=== PATIENT | male | born 1970 | race Two or more races ===

== ENCOUNTER 2018-09-30 20:07 | Emergency (ER) | payer BC ==
[2018-09-30] MEDS ORDERED: SODIUM CHLORIDE 0.9% 500 ML 500 ML IV STA (20:39)
[2018-09-30 21:04] LABS: Basophils % (A) 1 %; Eosinophils # (A) 0.2 k/uL (0-0.7); Eosinophils % (A) 2 %; HCT 50.4 % (39.0-53.0); HGB 17.3 gm/dL (13.0-17.5); Lymphocytes # (A) 2.1 k/uL (1.0-4.8); Lymphocytes % (A) 26 %; MCH 31.2 pg (25.0-35.0); MCHC 34.4 g/dL (31.0-37.0); MCV 90.7 fL (80.0-100.0); Mean Platelet Volume 6.9; Monocytes # (A) 0.4 k/uL (0-1.0); Monocytes % (A) 5 %; Neutrophils # (A) 5.3 k/uL (1.3-7.7); Neutrophils % (A) 65 %; Platelet Count 245 k/uL (150-450); RBC 5.55 m/uL (4.30-5.90); RDW 13.1 % (11.5-15.5)
--- NOTE | 2018-09-30 21:12 | XR ---
EXAMINATION TYPE: XR chest 2V DATE OF EXAM: 09/30/2018 COMPARISON: Chest radiograph 10/27/2016 HISTORY: Chest pain TECHNIQUE: Frontal and lateral views of the chest are obtained. FINDINGS: There is no focal air space opacity, pleural effusion, or pneumothorax seen. The cardiac silhouette size is within normal limits. The osseous structures are intact. IMPRESSION: No acute cardiopulmonary process. No significant interval change.
[2018-09-30 21:23] LABS: Partial Thromboplastin Time 25.1 sec (22.0-30.0)
[2018-09-30 21:24] LABS: ALT 30 U/L (21-72); AST 27 U/L (17-59); Alkaline Phosphatase 79 U/L (38-126); Anion Gap 8 mmol/L; Blood Urea Nitrogen 10 mg/dL (9-20); Carbon Dioxide 28 mmol/L (22-30); Chloride 106 mmol/L (98-107); Glucose 130 mg/dL (74-99); Magnesium 2.2 mg/dL (1.6-2.3); Potassium 4.4 mmol/L (3.5-5.1); Sodium 142 mmol/L (137-145); Total Bilirubin 0.6 mg/dL (0.2-1.3); Total Protein 7.4 g/dL (6.3-8.2)
--- NOTE | 2018-09-30 21:34 | ED ---
Arrhythmia/Palpitations HPI - General Chief Complaint: Arrhythmia/Palpitations Stated Complaint: A-Fib Symptoms/Hx Time Seen by Provider: 09/30/18 20:18 Source: patient Mode of arrival: ambulatory Limitations: no limitations - History of Present Illness Initial Comments: Patient is a 48-year-old male presenting for palpitations. Patient states that in the past, he was diagnosed with atrial fibrillation about 7 years ago and put on flecainide. He states that he was often on the medication but did not stay on it because he continued to have fatigued from it. Around 7:50 PM tonight, he noted that his heart rate went up to 180 bpm. He currently does not take any medications and denies any chest pain or shortness of breath. He also denies taking any blood thinners as well as nausea/vomiting/diarrhea. - Related Data Home Medications Medication Instructions Recorded Confirmed Aspirin EC [Ecotrin] 325 mg PO DAILY 10/27/16 09/30/18 Previous Rx's Medication Instructions Recorded Flecainide [Tambocor] 50 mg PO Q12HR #60 tab 10/28/16 Metoprolol Tartrate [Lopressor] 25 mg PO BID #60 tab 09/30/18 Allergies Allergy/AdvReac Type Severity Reaction Status Date / Time bee venom protein (honey bee) Allergy Swelling Verified 09/30/18 20:16 Review of Systems ROS Statement: Those systems with pertinent positive or pertinent negative responses have been documented in the HPI. Constitutional: Negative for chills, fatigue and fever. HENT: Negative for congestion. Respiratory: Negative for chest tightness, shortness of breath and wheezing. Negative for cough Cardiovascular: Negative for chest pain and positive for palpitations. Gastrointestinal: Negative for abdominal pain. Negative for abdominal distention , diarrhea, nausea and vomiting. Genitourinary: Negative for dysuria. Musculoskeletal: Negative for back pain, neck pain and neck stiffness. Skin: Negative for color change. Neurological: Negative for dizziness, speech difficulty, weakness and light- headedness. Psychiatric/Behavioral: Negative for agitation and confusion. Negative for anxiety ROS Other: All systems not noted in ROS Statement are negative. Past Medical History Past Medical History: Atrial Fibrillation History of Any Multi-Drug Resistant Organisms: None Reported Past Surgical History: Orthopedic Surgery Additional Past Surgical History / Comment(s): Bilateral knee arthroscopies. Past Anesthesia/Blood Transfusion Reactions: No Reported Reaction Past Psychological History: No Psychological Hx Reported Smoking Status: Current every day smoker Past Alcohol Use History: Occasional Past Drug Use History: None Reported - Past Family History Father Family Medical History: No Reported History Additional Family Medical History / Comment(s): Father is healthy and in his late 70's. Mother Family Medical History: Diabetes Mellitus Additional Family Medical History / Comment(s): Mother is in her late 70's. Maternal grandparents also had diabetes. General Exam - General Exam Comments Initial Comments: Constitutional: Pt is oriented to person, place, and time. Pt appears well- developed and well-nourished. No distress. HENT: Head: Normocephalic and atraumatic. Eyes: EOM are normal. Neck: Normal range of motion. Neck supple. Cardiovascular: Normal rate, regular rhythm, S1 normal, S2 normal and normal heart sounds. Exam reveals no gallop and no friction rub. No murmur heard. Pulmonary/Chest: Effort normal and breath sounds normal. No tachypnea and no bradypnea. No respiratory distress. No wheezes or rales noted. Abdominal: Soft. Bowel sounds are normal. Pt exhibits no shifting dullness, no distension, no pulsatile liver, no fluid wave, no abdominal bruit and no ascites. There is no tenderness. There is no rigidity, no rebound, no guarding, no tenderness at McBurney's point and negative Paiz's sign. Musculoskeletal: Normal range of motion. Neurological: Pt is alert and oriented to person, place, and time. No cranial nerve deficit. Skin: Skin is warm and dry. No rash noted. Pt is not diaphoretic. No erythema. No pallor. Psychiatric: Pt has a normal mood and affect. Pt behavior is normal. Thought content normal. Limitations: no limitations Course Vital Signs 09/30/18 09/30/18 20:13 22:55 Temperature 98.5 F 98.9 F Pulse Rate 99 74 Respiratory 18 16 Rate Blood Pressure 126/76 122/89 O2 Sat by Pulse 98 97 Oximetry EKG Findings - EKG Comments: EKG Findings:: EKG shows normal sinus rhythm with a rate of 91 bpm, IA interval 138, QRS 76, QTC 432. Medical Decision Making - Medical Decision Making Laboratory studies showed that there was no significant leukocytosis and from a cardiac standpoint, troponin was negative and EKG showed normal sinus rhythm. Case is discussed with cardiology investigation manager and it was recommended that the patient follow-up as an outpatient and that he be restarted on the metoprolol 25 mg twice a day. This is explained to patient and he was agreeable to plan and noted to not have any chest pain throughout his stay complaining of shortness of breath. There is also no significant arrhythmias here in the emergency department. Explained all labs and diagnostic test results and that we will discharge the patient home and patient is to follow up with PCP/cardio in 1-2 days and return to the ED if symptoms worsen. Pt is agreeable to plan. - Lab Data Result diagrams: 09/30/18 20:30 09/30/18 20:30 Lab Results 09/30/18 09/30/18 09/30/18 Range/Units 20:30 20:30 20:30 WBC 8.0 (3.8-10.6) k/uL RBC 5.55 (4.30-5.90) m/uL Hgb 17.3 (13.0-17.5) gm/dL Hct 50.4 (39.0-53.0) % MCV 90.7 (80.0-100.0) fL MCH 31.2 (25.0-35.0) pg MCHC 34.4 (31.0-37.0) g/dL RDW 13.1 (11.5-15.5) % Plt Count 245 (150-450) k/uL Neutrophils % 65 % Lymphocytes % 26 % Monocytes % 5 % Eosinophils % 2 % Basophils % 1 % Neutrophils # 5.3 (1.3-7.7) k/uL Lymphocytes # 2.1 (1.0-4.8) k/uL Monocytes # 0.4 (0-1.0) k/uL Eosinophils # 0.2 (0-0.7) k/uL Basophils # 0.0 (0-0.2) k/uL PT 10.0 (9.0-12.0) sec INR 1.0 (<1.2) APTT 25.1 (22.0-30.0) sec Sodium 142 (137-145) mmol/L Potassium 4.4 (3.5-5.1) mmol/L Chloride 106 (98-107) mmol/L Carbon Dioxide 28 (22-30) mmol/L Anion Gap 8 mmol/L BUN 10 (9-20) mg/dL Creatinine 1.03 (0.66-1.25) mg/dL Est GFR (CKD-EPI)AfAm >90 (>60 ml/min/1.73 sqM) Est GFR (CKD-EPI)NonAf 85 (>60 ml/min/1.73 sqM) Glucose 130 H (74-99) mg/dL Calcium 9.0 (8.4-10.2) mg/dL Magnesium 2.2 (1.6-2.3) mg/dL Total Bilirubin 0.6 (0.2-1.3) mg/dL AST 27 (17-59) U/L ALT 30 (21-72) U/L Alkaline Phosphatase 79 (38-126) U/L Troponin I (0.000-0.034) ng/mL Total Protein 7.4 (6.3-8.2) g/dL Albumin 4.0 (3.5-5.0) g/dL TSH 0.827 (0.465-4.680) mIU/L 09/30/18 Range/Units 20:30 WBC (3.8-10.6) k/uL RBC (4.30-5.90) m/uL Hgb (13.0-17.5) gm/dL Hct (39.0-53.0) % MCV (80.0-100.0) fL MCH (25.0-35.0) pg MCHC (31.0-37.0) g/dL RDW (11.5-15.5) % Plt Count (150-450) k/uL Neutrophils % % Lymphocytes % % Monocytes % % Eosinophils % % Basophils % % Neutrophils # (1.3-7.7) k/uL Lymphocytes # (1.0-4.8) k/uL Monocytes # (0-1.0) k/uL Eosinophils # (0-0.7) k/uL Basophils # (0-0.2) k/uL PT (9.0-12.0) sec INR (<1.2) APTT (22.0-30.0) sec Sodium (137-145) mmol/L Potassium (3.5-5.1) mmol/L Chloride (98-107) mmol/L Carbon Dioxide (22-30) mmol/L Anion Gap mmol/L BUN (9-20) mg/dL Creatinine (0.66-1.25) mg/dL Est GFR (CKD-EPI)AfAm (>60 ml/min/1.73 sqM) Est GFR (CKD-EPI)NonAf (>60 ml/min/1.73 sqM) Glucose (74-99) mg/dL Calcium (8.4-10.2) mg/dL Magnesium (1.6-2.3) mg/dL Total Bilirubin (0.2-1.3) mg/dL AST (17-59) U/L ALT (21-72) U/L Alkaline Phosphatase (38-126) U/L Troponin I <0.012 (0.000-0.034) ng/mL Total Protein (6.3-8.2) g/dL Albumin (3.5-5.0) g/dL TSH (0.465-4.680) mIU/L Disposition Clinical Impression: Palpitations, Atrial fibrillation Disposition: HOME SELF-CARE Condition: Good Instructions: Heart Palpitations (ED) Prescriptions: Metoprolol Tartrate [Lopressor] 25 mg PO BID #60 tab Is patient prescribed a controlled substance at d/c from ED?: No Referrals: Ross Mon MD [Primary Care Provider] - 1-2 days Yaron Duff MD [STAFF PHYSICIAN] - 1-2 days Time of Disposition: 22:20
[2018-09-30 22:56] VITALS: BP 122/89; PULSE 74; RESP 16; TEMP 98.9
== END 2018-09-30 22:55 | disposition home or self-care (01) ==
LOC: EC 20:07
DX: I48.91 Unspecified atrial fibrillation (principal); F17.200 Nicotine dependence, unspecified, uncomplicated; Z79.82 Long term (current) use of aspirin; Z91.048 Other nonmedicinal substance allergy status
CPT/HCPCS: 36415; 71046; 80053; 83735; 84443; 84484; 85025; 85610; 85730; 93005; 96360; 99285

== ENCOUNTER 2019-07-11 23:18 | Emergency (ER) | payer BC ==
[2019-07-11 23:23] VITALS: RESP 18
--- NOTE | 2019-07-12 00:06 | ED ---
Arrhythmia/Palpitations HPI - General Chief Complaint: Arrhythmia/Palpitations Stated Complaint: Tachycardia HX Afib Time Seen by Provider: 07/11/19 23:33 Source: patient Limitations: no limitations - History of Present Illness Initial Comments: This patient is a 49-year-old man with history of previous atrial fibrillation who presents with a complaint that he was having an episode of atrial fibrillation associated with chest pressure and shortness of breath. The patient states that he was watching TV 1-2 hours ago when he noticed that his heart was racing. He also began feeling short of breath and that there was pressure on his chest. The patient states that he checks with an collette that showed a heart rate up into the 160s. The patient states that when it didn't resolve immediately, like it typically does he felt he should be checked here. The patient states that the symptoms had resolved about the time he was arriving here. The chest pain, dyspnea and palpitations at all stopped. He states he is feeling much better now. There was no diaphoresis, nausea or vomiting. MD Complaint: "heart racing" -: hour(s) Context: occurred during rest Arrhythmia History: atrial fibrillation Associated Symptoms: shortness of breath - Related Data Home Medications Medication Instructions Recorded Confirmed No Known Home Medications 07/11/19 07/11/19 Allergies Allergy/AdvReac Type Severity Reaction Status Date / Time bee venom protein (honey bee) Allergy Swelling Verified 07/11/19 23:30 Review of Systems ROS Statement: Those systems with pertinent positive or pertinent negative responses have been documented in the HPI. ROS Other: All systems not noted in ROS Statement are negative. Constitutional: Denies: fever, chills Respiratory: Reports: dyspnea. Denies: cough, wheezes, hemoptysis Cardiovascular: Reports: chest pain, palpitations. Denies: dyspnea on exertion, orthopnea, edema, syncope Gastrointestinal: Denies: abdominal pain, nausea, vomiting, melena, hematochezia Musculoskeletal: Denies: back pain Skin: Denies: rash Neurological: Denies: headache, weakness, numbness Hematological/Lymphatic: Denies: easy bleeding Past Medical History Past Medical History: Atrial Fibrillation History of Any Multi-Drug Resistant Organisms: None Reported Past Surgical History: Orthopedic Surgery Additional Past Surgical History / Comment(s): Bilateral knee arthroscopies. Past Anesthesia/Blood Transfusion Reactions: No Reported Reaction Past Psychological History: No Psychological Hx Reported Smoking Status: Current every day smoker Past Alcohol Use History: Occasional Past Drug Use History: None Reported - Past Family History Father Family Medical History: No Reported History Additional Family Medical History / Comment(s): Father is healthy and in his late 70's. Mother Family Medical History: Diabetes Mellitus Additional Family Medical History / Comment(s): Mother is in her late 70's. Maternal grandparents also had diabetes. General Exam Limitations: no limitations General appearance: alert, in no apparent distress Head exam: Present: atraumatic, normocephalic Eye exam: Present: normal appearance. Absent: scleral icterus, conjunctival injection ENT exam: Present: normal oropharynx Respiratory exam: Present: normal lung sounds bilaterally. Absent: respiratory distress, wheezes, rales, rhonchi, stridor Cardiovascular Exam: Present: regular rate, normal rhythm, normal heart sounds. Absent: systolic murmur, diastolic murmur, rubs, gallop GI/Abdominal exam: Present: soft. Absent: distended, tenderness, guarding, rebound, rigid Extremities exam: Present: normal inspection, normal capillary refill. Absent: pedal edema, calf tenderness Back exam: Present: normal inspection. Absent: CVA tenderness (R), CVA tenderness (L) Neurological exam: Present: alert Skin exam: Present: warm, dry, intact, normal color. Absent: rash Course Vital Signs 07/11/19 23:21 Temperature 98.1 F Pulse Rate 103 H Respiratory 18 Rate Blood Pressure 144/88 O2 Sat by Pulse 99 Oximetry EKG Findings - EKG Results: EKG: interpreted by LOURDES, sinus rhythm (Rate 93 bpm), normal axis, normal QRS, normal ST/T, no acute changes Medical Decision Making - Medical Decision Making Patient is a 49-year-old man with history of previous atrial fibrillation who describes classic episode of paroxysmal atrial fibrillation. His heart rate had resolved, and his symptoms have as well. His workup here is negative. I did recommend telemetry monitoring and serial cardiac enzymes, with the patient states he will follow-up with the community aide. He does agree to return here should any symptoms recur. - Lab Data Result diagrams: 07/11/19 23:58 07/11/19 23:58 Lab Results 07/11/19 07/11/19 07/11/19 Range/Units 23:58 23:58 23:58 WBC 12.1 H (3.8-10.6) k/uL RBC 5.24 (4.30-5.90) m/uL Hgb 17.0 (13.0-17.5) gm/dL Hct 47.8 (39.0-53.0) % MCV 91.3 (80.0-100.0) fL MCH 32.5 (25.0-35.0) pg MCHC 35.6 (31.0-37.0) g/dL RDW 15.1 (11.5-15.5) % Plt Count 291 (150-450) k/uL Neutrophils % 62 % Lymphocytes % 27 % Monocytes % 5 % Eosinophils % 4 % Basophils % 2 % Neutrophils # 7.5 (1.3-7.7) k/uL Lymphocytes # 3.2 (1.0-4.8) k/uL Monocytes # 0.6 (0-1.0) k/uL Eosinophils # 0.4 (0-0.7) k/uL Basophils # 0.3 H (0-0.2) k/uL Sodium 139 (137-145) mmol/L Potassium 3.9 (3.5-5.1) mmol/L Chloride 105 (98-107) mmol/L Carbon Dioxide 24 (22-30) mmol/L Anion Gap 10 mmol/L BUN 17 (9-20) mg/dL Creatinine 1.00 (0.66-1.25) mg/dL Est GFR (CKD-EPI)AfAm >90 (>60 ml/min/1.73 sqM) Est GFR (CKD-EPI)NonAf 87 (>60 ml/min/1.73 sqM) Glucose 128 H (74-99) mg/dL Calcium 8.6 (8.4-10.2) mg/dL Magnesium 2.2 (1.6-2.3) mg/dL Total Bilirubin 0.4 (0.2-1.3) mg/dL AST 32 (17-59) U/L ALT 20 L (21-72) U/L Alkaline Phosphatase 75 (38-126) U/L Troponin I <0.012 (0.000-0.034) ng/mL Total Protein 7.2 (6.3-8.2) g/dL Albumin 4.0 (3.5-5.0) g/dL TSH 1.700 (0.465-4.680) mIU/L Disposition Clinical Impression: Paroxysmal atrial fibrillation, Chest pain Disposition: HOME SELF-CARE Condition: Fair Instructions (If sedation given, give patient instructions): A-fib (Atrial Fibrillation) (DC), Chest Pain (ED) Is patient prescribed a controlled substance at d/c from ED?: No Referrals: Ross Mon MD [Primary Care Provider] - 1-2 days Kalyan Farrell MD [STAFF PHYSICIAN] - 1-2 days
[2019-07-12 00:09] LABS: Basophils # (A) 0.3 k/uL (0-0.2); Basophils % (A) 2 %; Eosinophils # (A) 0.4 k/uL (0-0.7); Eosinophils % (A) 4 %; HCT 47.8 % (39.0-53.0); Lymphocytes # (A) 3.2 k/uL (1.0-4.8); Lymphocytes % (A) 27 %; MCH 32.5 pg (25.0-35.0); MCHC 35.6 g/dL (31.0-37.0); MCV 91.3 fL (80.0-100.0); Monocytes # (A) 0.6 k/uL (0-1.0); Monocytes % (A) 5 %; Neutrophils # (A) 7.5 k/uL (1.3-7.7); Neutrophils % (A) 62 %; Platelet Count 291 k/uL (150-450); RBC 5.24 m/uL (4.30-5.90); RDW 15.1 % (11.5-15.5); WBC 12.1 k/uL (3.8-10.6)
[2019-07-12 00:20] LABS: African American GFR (CKD) >90 (>60 ml/min/1.73 sqM); Anion Gap 10 mmol/L; Calcium 8.6 mg/dL (8.4-10.2); Carbon Dioxide 24 mmol/L (22-30); Chloride 105 mmol/L (98-107); Glucose 128 mg/dL (74-99); Sodium 139 mmol/L (137-145); Total Bilirubin 0.4 mg/dL (0.2-1.3); Total Protein 7.2 g/dL (6.3-8.2)
[2019-07-12 00:21] LABS: ALT 20 U/L (21-72); AST 32 U/L (17-59); Alkaline Phosphatase 75 U/L (38-126); Blood Urea Nitrogen 17 mg/dL (9-20); Magnesium 2.2 mg/dL (1.6-2.3); Potassium 3.9 mmol/L (3.5-5.1)
--- NOTE | 2019-07-12 00:34 | XR ---
EXAM: XR Chest, 2 Views CLINICAL HISTORY: ITS.REASON XR Reason: dysrhythmia TECHNIQUE: Frontal and lateral views of the chest. COMPARISON: 09/30/18. FINDINGS: Lungs: Low lung volumes. Lungs appear clear. Pleural space: Unremarkable. No pneumothorax. Heart: Unremarkable. No cardiomegaly. Mediastinum: Unremarkable. Bones/joints: Unremarkable. IMPRESSION: 1. Low lung volumes. No evidence of acute cardiopulmonary disease.
[2019-07-12 01:53] LABS: INR 0.9 (<1.2); Prothrombin Time 9.8 sec (9.0-12.0)
[2019-07-12 01:58] VITALS: BP 120/74; PULSE 89; TEMP 98.7
== END 2019-07-12 01:58 | disposition home or self-care (01) ==
LOC: EC 23:18
DX: I48.0 Paroxysmal atrial fibrillation (principal); F17.200 Nicotine dependence, unspecified, uncomplicated; Z91.030 Bee allergy status
CPT/HCPCS: 36415; 71046; 80053; 83735; 84443; 84484; 85025; 85610; 85730; 93005; 99285

== ENCOUNTER 2020-01-03 22:01 | Emergency (ER) | payer BC ==
[2020-01-03] MEDS ORDERED: SODIUM CHLORIDE 0.9% 500 ML 500 ML IV STA (22:16)
[2020-01-03] MEDS ORDERED: SODIUM CHLORIDE 0.9% 1,000 ML IV STA ×2 (22:16)
--- NOTE | 2020-01-03 22:17 | ED ---
Arrhythmia/Palpitations HPI - General Chief Complaint: Arrhythmia/Palpitations Stated Complaint: AFib Time Seen by Provider: 01/03/20 22:10 Source: patient, RN notes reviewed, old records reviewed Mode of arrival: wheelchair Limitations: no limitations - History of Present Illness Initial Comments: This is a 49-year-old male here for shortness of breath cough and congestion history of smoking. History of atrial fibrillation currently takes no medicat ions no blood thinners or rate control meds on his own accord. Patient states the making fatigued he states he does have H fibrillation a few times a year the past couple couple days is from persistent he presents here with those complaints now. He also hasn't had increased cough or congestion may be some fevers and chills with no recent travel history or known sick contacts MD Complaint: rapid heart beat, palpitations, atrial fibrillation -: days(s) Context: occurred during rest, occurred during exertion Arrhythmia History: atrial fibrillation Associated Symptoms: shortness of breath, cough Treatments Prior to Arrival: other (Patient does not take prescribed medications) - Related Data Home Medications Medication Instructions Recorded Confirmed No Known Home Medications 07/11/19 07/11/19 Allergies Allergy/AdvReac Type Severity Reaction Status Date / Time bee venom protein (honey bee) Allergy Swelling Verified 07/11/19 23:30 Review of Systems ROS Statement: Those systems with pertinent positive or pertinent negative responses have been documented in the HPI. ROS Other: All systems not noted in ROS Statement are negative. Past Medical History Past Medical History: Atrial Fibrillation History of Any Multi-Drug Resistant Organisms: None Reported Past Surgical History: Orthopedic Surgery Additional Past Surgical History / Comment(s): Bilateral knee arthroscopies. Past Anesthesia/Blood Transfusion Reactions: No Reported Reaction Past Psychological History: No Psychological Hx Reported Smoking Status: Current every day smoker Past Alcohol Use History: Occasional Past Drug Use History: None Reported - Past Family History Father Family Medical History: No Reported History Additional Family Medical History / Comment(s): Father is healthy and in his late 70's. Mother Family Medical History: Diabetes Mellitus Additional Family Medical History / Comment(s): Mother is in her late 70's. Maternal grandparents also had diabetes. General Exam Limitations: no limitations General appearance: alert, in no apparent distress Head exam: Present: atraumatic, normocephalic, normal inspection Eye exam: Present: normal appearance, PERRL, EOMI. Absent: scleral icterus, conjunctival injection, periorbital swelling ENT exam: Present: normal exam, mucous membranes moist Neck exam: Present: normal inspection. Absent: tenderness, meningismus, lymphadenopathy Respiratory exam: Present: normal lung sounds bilaterally, rhonchi (Right- sided), prolonged expiratory. Absent: respiratory distress, wheezes, rales, stridor Cardiovascular Exam: Present: normal rhythm, tachycardia, normal heart sounds. Absent: systolic murmur, diastolic murmur, rubs, gallop, clicks GI/Abdominal exam: Present: soft, normal bowel sounds. Absent: distended, tenderness, guarding, rebound, rigid Extremities exam: Present: normal inspection, full ROM, normal capillary refill. Absent: tenderness, pedal edema, joint swelling, calf tenderness Back exam: Present: normal inspection Neurological exam: Present: alert, oriented X3, CN II-XII intact Psychiatric exam: Present: normal affect, normal mood Skin exam: Present: warm, dry, intact, normal color. Absent: rash Course Vital Signs 01/03/20 01/03/20 22:01 22:44 Temperature 98.8 F 99.3 F Pulse Rate 104 H 89 Respiratory 18 20 Rate Blood Pressure 146/85 129/81 O2 Sat by Pulse 98 96 Oximetry - Reevaluation(s) Reevaluation #1: 01/03/20 23:24 Medical records reviewed Reevaluation #2: 01/03/20 23:24 Patient feeling better with hydration, pain control Reevaluation #3: 01/03/20 23:24 Patient informed of results, questions answered, physical for discharge home EKG Findings - EKG Comments: EKG Findings:: EKG shows sinus tachycardia 101, NH interval 140, QRS 76, QTC 427 Medical Decision Making - Medical Decision Making 49 male to the ED co sob, tachycardia, and findings of pneumonia, been in and out of atrial fibrillation. Patient is currently in normal sinus rhythm symptoms improved and patient can be discharged - Lab Data Result diagrams: 01/03/20 20:17 01/03/20 20:17 Lab Results 01/03/20 01/03/20 01/03/20 Range/Units 20:17 20:17 20:17 WBC 9.1 (3.8-10.6) k/uL RBC 5.20 (4.30-5.90) m/uL Hgb 16.1 (13.0-17.5) gm/dL Hct 48.2 (39.0-53.0) % MCV 92.7 (80.0-100.0) fL MCH 31.0 (25.0-35.0) pg MCHC 33.4 (31.0-37.0) g/dL RDW 12.6 (11.5-15.5) % Plt Count 237 (150-450) k/uL Neutrophils % 66 % Lymphocytes % 24 % Monocytes % 6 % Eosinophils % 2 % Basophils % 1 % Neutrophils # 6.0 (1.3-7.7) k/uL Lymphocytes # 2.2 (1.0-4.8) k/uL Monocytes # 0.5 (0-1.0) k/uL Eosinophils # 0.2 (0-0.7) k/uL Basophils # 0.1 (0-0.2) k/uL PT 9.8 (9.0-12.0) sec INR 0.9 (<1.2) APTT 24.7 (22.0-30.0) sec Sodium 135 L (137-145) mmol/L Potassium 4.0 (3.5-5.1) mmol/L Chloride 102 (98-107) mmol/L Carbon Dioxide 24 (22-30) mmol/L Anion Gap 9 mmol/L BUN 14 (9-20) mg/dL Creatinine 0.95 (0.66-1.25) mg/dL Est GFR (CKD-EPI)AfAm >90 (>60 ml/min/1.73 sqM) Est GFR (CKD-EPI)NonAf >90 (>60 ml/min/1.73 sqM) Glucose 123 H (74-99) mg/dL Calcium 8.5 (8.4-10.2) mg/dL Phosphorus 3.1 (2.5-4.5) mg/dL Magnesium 2.0 (1.6-2.3) mg/dL Total Bilirubin 0.4 (0.2-1.3) mg/dL AST 32 (17-59) U/L ALT 20 (4-49) U/L Alkaline Phosphatase 88 (38-126) U/L Troponin I (0.000-0.034) ng/mL NT-Pro-B Natriuret Pep pg/mL Total Protein 7.3 (6.3-8.2) g/dL Albumin 4.0 (3.5-5.0) g/dL Influenza Type A RNA (Not Detectd) Influenza Type B (PCR) (Not Detectd) 01/03/20 01/03/20 01/03/20 Range/Units 20:17 20:17 22:20 WBC (3.8-10.6) k/uL RBC (4.30-5.90) m/uL Hgb (13.0-17.5) gm/dL Hct (39.0-53.0) % MCV (80.0-100.0) fL MCH (25.0-35.0) pg MCHC (31.0-37.0) g/dL RDW (11.5-15.5) % Plt Count (150-450) k/uL Neutrophils % % Lymphocytes % % Monocytes % % Eosinophils % % Basophils % % Neutrophils # (1.3-7.7) k/uL Lymphocytes # (1.0-4.8) k/uL Monocytes # (0-1.0) k/uL Eosinophils # (0-0.7) k/uL Basophils # (0-0.2) k/uL PT (9.0-12.0) sec INR (<1.2) APTT (22.0-30.0) sec Sodium (137-145) mmol/L Potassium (3.5-5.1) mmol/L Chloride (98-107) mmol/L Carbon Dioxide (22-30) mmol/L Anion Gap mmol/L BUN (9-20) mg/dL Creatinine (0.66-1.25) mg/dL Est GFR (CKD-EPI)AfAm (>60 ml/min/1.73 sqM) Est GFR (CKD-EPI)NonAf (>60 ml/min/1.73 sqM) Glucose (74-99) mg/dL Calcium (8.4-10.2) mg/dL Phosphorus (2.5-4.5) mg/dL Magnesium (1.6-2.3) mg/dL Total Bilirubin (0.2-1.3) mg/dL AST (17-59) U/L ALT (4-49) U/L Alkaline Phosphatase (38-126) U/L Troponin I <0.012 (0.000-0.034) ng/mL NT-Pro-B Natriuret Pep 63 pg/mL Total Protein (6.3-8.2) g/dL Albumin (3.5-5.0) g/dL Influenza Type A RNA Not Detected (Not Detectd) Influenza Type B (PCR) Not Detected (Not Detectd) - Radiology Data Radiology results: report reviewed (Chest x-ray is positive for pneumonia), image reviewed Disposition Clinical Impression: Atrial fibrillation with RVR, Tachycardia, Acute bronchitis with COPD, Community acquired bacterial pneumonia Disposition: HOME SELF-CARE Condition: Good Instructions (If sedation given, give patient instructions): Bacterial Pneumonia (ED) Is patient prescribed a controlled substance at d/c from ED?: No Referrals: Ross Mon MD [Primary Care Provider] - 1-2 days
[2020-01-03 22:35] LABS: Basophils # (A) 0.1 k/uL (0-0.2); Basophils % (A) 1 %; Eosinophils # (A) 0.2 k/uL (0-0.7); Eosinophils % (A) 2 %; HCT 48.2 % (39.0-53.0); HGB 16.1 gm/dL (13.0-17.5); Lymphocytes # (A) 2.2 k/uL (1.0-4.8); Lymphocytes % (A) 24 %; MCHC 33.4 g/dL (31.0-37.0); MCV 92.7 fL (80.0-100.0); Mean Platelet Volume 7.3; Monocytes # (A) 0.5 k/uL (0-1.0); Monocytes % (A) 6 %; Neutrophils % (A) 66 %; Platelet Count 237 k/uL (150-450); RDW 12.6 % (11.5-15.5); WBC 9.1 k/uL (3.8-10.6)
--- NOTE | 2020-01-03 22:40 | XR ---
EXAMINATION TYPE: XR chest 2V DATE OF EXAM: 01/03/2020 COMPARISON: 07/12/2019 HISTORY: Weakness TECHNIQUE: FINDINGS: Heart and mediastinum are normal. There is 6 cm rounded area of consolidation in the superi or segment right lower lobe. Left lung is clear. There is no pleural effusion. Bony thorax is intact. There are chest leads. IMPRESSION: Consolidation in the right lower lobe is new compared to last exam and more likely relate d to acute pneumonia. Follow-up is recommended show clearing.
[2020-01-03 22:56] LABS: ALT 20 U/L (4-49); AST 32 U/L (17-59); African American GFR (CKD) >90 (>60 ml/min/1.73 sqM); Alkaline Phosphatase 88 U/L (38-126); Anion Gap 9 mmol/L; Blood Urea Nitrogen 14 mg/dL (9-20); Calcium 8.5 mg/dL (8.4-10.2); Carbon Dioxide 24 mmol/L (22-30); Chloride 102 mmol/L (98-107); Glucose 123 mg/dL (74-99); Non-African American GFR(CKD) >90 (>60 ml/min/1.73 sqM); Phosphorus 3.1 mg/dL (2.5-4.5); Sodium 135 mmol/L (137-145); Total Bilirubin 0.4 mg/dL (0.2-1.3); Total Protein 7.3 g/dL (6.3-8.2)
[2020-01-03 22:57] LABS: INR 0.9 (<1.2); Partial Thromboplastin Time 24.7 sec (22.0-30.0); Prothrombin Time 9.8 sec (9.0-12.0)
[2020-01-03] MEDS ORDERED: AZITHROMYCIN 500 MG in SODIUM CHLORIDE 0.9% 250 ML IVPB STA (23:04)
[2020-01-03] MEDS ORDERED: cefTRIAXone IN SWFI 1,000 MG/10 ML SYRINGE IVP STA (23:04)
[2020-01-03] MEDS ORDERED: IPRATROPIUM-ALBUTEROL 3 ML NEB INHALATION STA (23:04)
[2020-01-03] MEDS ORDERED: KETOROLAC 30 MG/ML 1 ML VIAL IVP STA (23:05)
[2020-01-04] MEDS ORDERED: AZITHROMYCIN 500 MG TAB PO STA (00:09)
[2020-01-04 00:23] VITALS: BP 132/76; PULSE 80; RESP 18; TEMP 99
== END 2020-01-04 00:23 | disposition home or self-care (01) ==
LOC: EC 22:01
DX: I48.91 Unspecified atrial fibrillation (principal); J44.0 Chronic obstructive pulmonary disease with (acute) lower respiratory infection; J20.9 Acute bronchitis, unspecified; J15.9 Unspecified bacterial pneumonia; F17.200 Nicotine dependence, unspecified, uncomplicated; Z91.030 Bee allergy status
CPT/HCPCS: 36415; 94640; 93005; 83880; 80053; 83735; 84100; 84443; 84484; 85025; 85610; 85730; 87502; 71046; 99285; 96365; 96375 ×2; J0456; J0696; J1885

== ENCOUNTER 2020-06-12 07:25 | Emergency (ER) | payer BC ==
[2020-06-12 07:32] VITALS: BP 120/76; PULSE 92; RESP 18; TEMP 97.8
[2020-06-12] MEDS ORDERED: methylPREDNISolone SOD SUCCI 125 MG/2 ML VIAL IM ONE (07:50)
[2020-06-12] MEDS ORDERED: diphenhydrAMINE 50 MG/ML 1 ML VIAL IM STA (07:50)
--- NOTE | 2020-06-12 07:55 | ED ---
Allergic Reaction HPI - General Chief complaint: Allergic Reaction Stated complaint: Allergic Reaction Time Seen by Provider: 06/12/20 07:33 Source: patient Mode of arrival: ambulatory - History of Present Illness Initial Comments: Patient is a 49-year-old male presenting to the emergency Department with complaints of a ALLERGIC reaction to multiple bee stings that he sustained last night. Patient states he was moving some pieces of wood in his yard when a bunch of bees came out from underneath and stung him on the multiple sites on his both of his legs. Patient states yesterday he was feeling okay, never had any difficulty breathing. Patient states he woke up this morning and the areas where he was stung had increase in size, he is having more pain, more redness as well. Patient states when this happened before he usually takes some steroids which seems to help his symptoms. He states he's never had to use an EpiPen. He denies any chest pain, trouble breathing, throat pain. He did not take any medications for this today. He has no further complaints. Upon arrival to the ER, his vital signs are stable. - Related Data Previous Rx's Medication Instructions Recorded Albuterol Sulfate [Proair Hfa] 1 - 2 puff INHALATION Q4H PRN #1 01/04/20 inhaler Azithromycin [Zithromax Z-pack] 0 mg PO DIRECTED #1 pack 01/04/20 predniSONE 50 mg PO DAILY #5 tab 01/04/20 methylPREDNISolone [Medrol Dose 4 mg PO DIRECTED #1 pack 06/12/20 Pack] Allergies Allergy/AdvReac Type Severity Reaction Status Date / Time bee venom protein (honey bee) Allergy Swelling Verified 06/12/20 07:43 Review of Systems ROS Statement: Those systems with pertinent positive or pertinent negative responses have been documented in the HPI. ROS Other: All systems not noted in ROS Statement are negative. Past Medical History Past Medical History: Atrial Fibrillation History of Any Multi-Drug Resistant Organisms: None Reported Past Surgical History: Orthopedic Surgery Additional Past Surgical History / Comment(s): Bilateral knee arthroscopies. Past Anesthesia/Blood Transfusion Reactions: No Reported Reaction Past Psychological History: No Psychological Hx Reported Smoking Status: Current every day smoker Past Alcohol Use History: Occasional Past Drug Use History: None Reported - Past Family History Father Family Medical History: No Reported History Additional Family Medical History / Comment(s): Father is healthy and in his late 70's. Mother Family Medical History: Diabetes Mellitus Additional Family Medical History / Comment(s): Mother is in her late 70's. Maternal grandparents also had diabetes. General Exam - General Exam Comments Initial Comments: GENERAL: Patient is well-developed and well-nourished. Patient is nontoxic and in no acute distress. HEAD: Atraumatic, normocephalic. EYES: Pupils equal round and reactive to light, extraocular movements intact, sclera anicteric, conjunctiva are normal. Eyelids were unremarkable. ENT: TMs normal, nares patent, oropharynx clear without exudates. Moist mucous membranes. NECK: Normal range of motion, supple without lymphadenopathy or JVD. LUNGS: Unlabored respirations. Breath sounds clear to auscultation bilaterally and equal. No wheezes rales or rhonchi. HEART: Regular rate and rhythm without murmurs, rubs or gallops. ABDOMEN: Soft, nontender, normoactive bowel sounds. No guarding, no rebound. No masses appreciated. : Deferred MUSCULOSKELETAL: Normal extremities with adequate strength and normal range of motion, no pitting or edema. No clubbing or cyanosis. Bilateral lower extremities are neurovascular intact. Patient does have a normal gait. NEUROLOGICAL: Normal speech, normal gait. PSYCH: Normal mood, normal affect. SKIN: Warm, Dry, normal turgor. Patient has 4-5 bee stings to both of his legs, all the sites are swollen, erythematous, consistent with a local ALLERGIC reaction. Course Vital Signs 06/12/20 07:27 Temperature 97.8 F Pulse Rate 92 Respiratory 18 Rate Blood Pressure 120/76 O2 Sat by Pulse 97 Oximetry Medical Decision Making - Medical Decision Making Patient is a 49-year-old male here for an ALLERGIC response to multiple bee stings on his legs from last night. His vital signs are stable. He denies any respiratory distress. His exam is consistent with local reaction. Patient will be given solumedrol and Benadryl IM. I will give him a prescription for continuous steroids for the next few days. Patient is agreeable with this plan of care. He is stable for discharge. Return parameters were discussed with the patient he verbalizes understanding. Disposition Clinical Impression: Allergic reaction to insect sting Disposition: HOME SELF-CARE Condition: Stable Instructions (If sedation given, give patient instructions): Insect Bite or Sting (ED) Additional Instructions: Please return to the Emergency Department if symptoms worsen or any other concerns. May continue with oral steroids, start tomorrow. May also repeat Benadryl dose every 8 hours for itchiness. Follow-up with PCP as needed. Prescriptions: methylPREDNISolone [Medrol Dose Pack] 4 mg PO DIRECTED #1 pack Is patient prescribed a controlled substance at d/c from ED?: No Referrals: Ross Mon MD [Primary Care Provider] - 1-2 days
== END 2020-06-12 08:10 | disposition home or self-care (01) ==
LOC: EC 07:25
DX: T63.441A Toxic effect of venom of bees, accidental (unintentional), initial encounter (principal); F17.200 Nicotine dependence, unspecified, uncomplicated; Z91.030 Bee allergy status
CPT/HCPCS: 99283; 96372 ×2; J1200; J2930

== ENCOUNTER 2021-04-11 23:26 | Emergency (ER) | payer BC ==
[2021-04-11 23:33] VITALS: TEMP 98
--- NOTE | 2021-04-12 00:13 | ED ---
Chest Pain HPI - General Chief Complaint: Chest Pain Stated Complaint: Chest Pain Time Seen by Provider: 04/11/21 23:36 Source: patient Mode of arrival: wheelchair Limitations: no limitations - History of Present Illness Initial Comments: Patient is a 50-year-old man who presents to be evaluated with concerns of possible heart attack. Patient states the symptoms tonight were shortness of breath with sexual activity. The patient has noticed he has decreased exercise tolerance over the past number weeks. He states he gets winded if he goes upstairs. He also has been having some left-sided chest pains going back 2 months since he believes he pulled something while golfing. On the chest pains are brief lasting just a second mainly positional, and are not accompanied by any anginal symptoms. The patient states that currently his symptoms have resolved. MD Complaint: chest pain, other Onset/Timin -: hour(s) Onset: during exertion Severity scale (1-10): 0 Quality: sharp Consistency: intermittent, now resolved Improves With: rest Worsens With: exertion Anginal Symptoms: dyspnea Treatments Prior to Arrival: none - Related Data Previous Rx's Medication Instructions Recorded Albuterol Sulfate [Proair Hfa] 1 - 2 puff INHALATION Q4H PRN #1 01/04/20 inhaler Azithromycin [Zithromax Z-pack (6 0 mg PO DIRECTED #1 pack 01/04/20 tabs)] predniSONE 50 mg PO DAILY #5 tab 01/04/20 methylPREDNISolone [Medrol Dose 4 mg PO DIRECTED #1 pack 06/12/20 Pack] Allergies Allergy/AdvReac Type Severity Reaction Status Date / Time bee venom protein (honey bee) Allergy Swelling Verified 04/11/21 23:32 Review of Systems ROS Statement: Those systems with pertinent positive or pertinent negative responses have been documented in the HPI. ROS Other: All systems not noted in ROS Statement are negative. Constitutional: Denies: fever, chills Respiratory: Reports: as per HPI. Denies: cough, dyspnea, wheezes Cardiovascular: Reports: as per HPI, chest pain, dyspnea on exertion. Denies: palpitations, orthopnea, edema, syncope Gastrointestinal: Denies: abdominal pain, nausea, vomiting, melena, hematochezia Genitourinary: Denies: dysuria, hematuria Musculoskeletal: Denies: back pain Skin: Denies: rash Neurological: Denies: headache, weakness, numbness EKG Findings - EKG Results: EKG: interpreted by ERMD, sinus rhythm (Rate 92 bpm), normal axis, normal QRS, normal ST/T Past Medical History Past Medical History: Atrial Fibrillation History of Any Multi-Drug Resistant Organisms: None Reported Past Surgical History: Orthopedic Surgery Additional Past Surgical History / Comment(s): Bilateral knee arthroscopies. Past Anesthesia/Blood Transfusion Reactions: No Reported Reaction Past Psychological History: No Psychological Hx Reported Smoking Status: Current every day smoker Past Alcohol Use History: Occasional Past Drug Use History: None Reported - Past Family History Father Family Medical History: No Reported History Additional Family Medical History / Comment(s): Father is healthy and in his late 70's. Mother Family Medical History: Diabetes Mellitus Additional Family Medical History / Comment(s): Mother is in her late 70's. Maternal grandparents also had diabetes. General Exam Limitations: no limitations General appearance: alert, in no apparent distress Head exam: Present: atraumatic, normocephalic Eye exam: Present: normal appearance. Absent: scleral icterus, conjunctival injection Respiratory exam: Present: normal lung sounds bilaterally. Absent: respiratory distress, wheezes, rales, rhonchi, stridor, chest wall tenderness, accessory muscle use Cardiovascular Exam: Present: regular rate, normal rhythm, normal heart sounds. Absent: systolic murmur, diastolic murmur, rubs, gallop GI/Abdominal exam: Present: soft. Absent: distended, tenderness, guarding, rebound, rigid, mass Extremities exam: Present: normal inspection, normal capillary refill. Absent: pedal edema, calf tenderness Back exam: Present: normal inspection. Absent: CVA tenderness (R), CVA tenderness (L) Neurological exam: Present: alert Psychiatric exam: Present: normal affect Skin exam: Present: warm, dry, intact, normal color. Absent: rash Course Vital Signs 04/11/21 04/11/21 04/12/21 23:29 23:45 00:00 Temperature 98 F Pulse Rate 105 H 85 Respiratory 20 18 Rate Blood Pressure 146/92 153/95 O2 Sat by Pulse 95 96 Oximetry 04/12/21 04/12/21 00:30 01:00 Temperature Pulse Rate 82 77 Respiratory 18 18 Rate Blood Pressure 153/95 125/74 O2 Sat by Pulse 95 95 Oximetry Disposition Clinical Impression: Exertional dyspnea Disposition: HOME SELF-CARE Condition: Good Instructions (If sedation given, give patient instructions): Dyspnea (ED) Is patient prescribed a controlled substance at d/c from ED?: No Referrals: Ross Mon MD [Primary Care Provider] - 1-2 days Kalyan Farrell MD [STAFF PHYSICIAN] - 1-2 days
[2021-04-12] MEDS ORDERED: METOPROLOL TARTRATE 25 MG TAB PO STA (00:23)
[2021-04-12] MEDS ORDERED: ASPIRIN 81 MG PO STA (00:23)
--- NOTE | 2021-04-12 00:29 | XR ---
EXAMINATION TYPE: XR chest 2V DATE OF EXAM: 04/12/2021 COMPARISON: 01/03/2020 HISTORY: Chest pain TECHNIQUE: FINDINGS: Heart is normal. There is some minimal infiltrate lateral to the right pulmonary hilum. The other lung bartlett are fairly clear. There is no pleural effusion. There are no hilar masses. Mediast inum is normal. Bony thorax is intact. IMPRESSION: Minimal right perihilar infiltrate is mostly cleared compared to old chest x-ray. Normal heart.
[2021-04-12 00:34] LABS: ALT 21 U/L (4-49); AST 28 U/L (17-59); African American GFR (CKD) >90 (>60 ml/min/1.73 sqM); Albumin 3.8 g/dL (3.5-5.0); Alkaline Phosphatase 88 U/L (38-126); Anion Gap 10 mmol/L; Blood Urea Nitrogen 17 mg/dL (9-20); Calcium 8.6 mg/dL (8.4-10.2); Carbon Dioxide 23 mmol/L (22-30); Chloride 103 mmol/L (98-107); Glucose 126 mg/dL (74-99); Magnesium 1.8 mg/dL (1.6-2.3); Non-African American GFR(CKD) 82 (>60 ml/min/1.73 sqM); Potassium 3.8 mmol/L (3.5-5.1); Sodium 136 mmol/L (137-145); Total Bilirubin 0.3 mg/dL (0.2-1.3); Total Protein 6.7 g/dL (6.3-8.2)
[2021-04-12 00:35] LABS: Basophils # (A) 0.1 k/uL (0-0.2); Basophils % (A) 1 %; Eosinophils # (A) 0.3 k/uL (0-0.7); Eosinophils % (A) 2 %; HCT 44.6 % (39.0-53.0); HGB 15.8 gm/dL (13.0-17.5); Lymphocytes # (A) 3.9 k/uL (1.0-4.8); Lymphocytes % (A) 36 %; MCH 31.8 pg (25.0-35.0); MCHC 35.5 g/dL (31.0-37.0); MCV 89.4 fL (80.0-100.0); Mean Platelet Volume 7.2; Monocytes # (A) 0.6 k/uL (0-1.0); Monocytes % (A) 5 %; Neutrophils % (A) 55 %; Platelet Count 226 k/uL (150-450); RBC 4.98 m/uL (4.30-5.90); RDW 13.1 % (11.5-15.5); WBC 10.9 k/uL (3.8-10.6)
[2021-04-12 00:57] LABS: D-Dimer 0.18 mg/L FEU (<0.60); INR 0.9 (<1.2); Partial Thromboplastin Time 24.8 sec (22.0-30.0)
[2021-04-12 01:16] VITALS: RESP 18
[2021-04-12 01:45] VITALS: BP 111/65; PULSE 65
== END 2021-04-12 01:47 | disposition home or self-care (01) ==
LOC: EC 23:26
DX: R06.09 Other forms of dyspnea (principal); I48.91 Unspecified atrial fibrillation; F17.210 Nicotine dependence, cigarettes, uncomplicated
CPT/HCPCS: 36415; 71046; 80053; 83735; 84484; 85025; 85379; 85610; 85730; 93005; 99285

== ENCOUNTER 2021-11-20 14:34 | Emergency (ER) | payer BC ==
[2021-11-20 14:38] VITALS: BP 129/85; PULSE 97; RESP 20; TEMP 98.3
--- NOTE | 2021-11-20 15:44 | ED ---
General Adult HPI - General Chief complaint: Recheck/Abnormal Lab/Rx Stated complaint: Back Pain Time Seen by Provider: 11/20/21 14:56 Source: patient Mode of arrival: ambulatory Limitations: no limitations - History of Present Illness Initial comments: This 61-year-old male presents emergency Department with nasal congestion, chills, intermittent backaches since last Tuesday. Patient states he was tested for COVID-19 last Tuesday and received a negative test. Patient states he believes it was a false negative. Patient states his symptoms are still present. He states he has been taking Tylenol to relieve his symptoms. Patient denies any saddle anesthesia, bowel or bladder incontinence/retention, weakness or loss of sensation in extremities or other red flag symptoms for cauda equina syndrome. Patient denies any chest pain, shortness of breath, abdominal pain, change in bowel or bladder, change in appetite, dizziness, headache, change in vision. - Related Data Previous Rx's Medication Instructions Recorded Albuterol Sulfate [Proair Hfa] 1 - 2 puff INHALATION Q4H PRN #1 01/04/20 inhaler Azithromycin [Zithromax Z-pack (6 0 mg PO DIRECTED #1 pack 01/04/20 tabs)] predniSONE 50 mg PO DAILY #5 tab 01/04/20 methylPREDNISolone [Medrol Dose 4 mg PO DIRECTED #1 pack 06/12/20 Pack] Allergies Allergy/AdvReac Type Severity Reaction Status Date / Time bee venom protein (honey bee) Allergy Swelling Verified 11/20/21 14:35 Review of Systems ROS Statement: Those systems with pertinent positive or pertinent negative responses have been documented in the HPI. ROS Other: All systems not noted in ROS Statement are negative. Past Medical History Past Medical History: Atrial Fibrillation History of Any Multi-Drug Resistant Organisms: None Reported Past Surgical History: Orthopedic Surgery Additional Past Surgical History / Comment(s): Bilateral knee arthroscopies. Past Anesthesia/Blood Transfusion Reactions: No Reported Reaction Past Psychological History: No Psychological Hx Reported Smoking Status: Current every day smoker Past Alcohol Use History: Occasional Past Drug Use History: None Reported - Past Family History Father Family Medical History: No Reported History Additional Family Medical History / Comment(s): Father is healthy and in his late 70's. Mother Family Medical History: Diabetes Mellitus Additional Family Medical History / Comment(s): Mother is in her late 70's. Maternal grandparents also had diabetes. General Exam Limitations: no limitations General appearance: alert, in no apparent distress Head exam: Present: atraumatic, normocephalic, normal inspection Eye exam: Present: normal appearance, EOMI ENT exam: Present: normal exam, mucous membranes moist Neck exam: Present: full ROM. Absent: tenderness, meningismus Respiratory exam: Present: normal lung sounds bilaterally. Absent: respiratory distress, wheezes, rales, rhonchi, stridor Cardiovascular Exam: Present: regular rate, normal rhythm, normal heart sounds. Absent: systolic murmur, diastolic murmur, rubs, gallop, clicks GI/Abdominal exam: Present: soft, normal bowel sounds. Absent: distended, tenderness, guarding, rebound, rigid Extremities exam: Present: full ROM Back exam: Present: normal inspection, full ROM. Absent: tenderness, CVA tenderness (R), CVA tenderness (L), muscle spasm, paraspinal tenderness, vertebral tenderness, rash noted Neurological exam: Present: alert, oriented X3, CN II-XII intact Psychiatric exam: Present: normal affect, normal mood Skin exam: Present: warm, dry, intact, normal color. Absent: rash Course Vital Signs 11/20/21 14:35 Temperature 98.3 F Pulse Rate 97 Respiratory 20 Rate Blood Pressure 129/85 O2 Sat by Pulse 96 Oximetry Medical Decision Making - Medical Decision Making This 61-year-old male presents to the emergency department in excess of her COVID-19. Patient was COVID-19 positive. Patient refused the Covid 19 antibody infusion, requirements met by his atrial fibrillation. Patient advised to take [id number] Tylenol or Motrin for symptom relief. Discussed getting a pulse oximeter and return to emergency department if oxygen drops below 90%. Patient sent home to follow-up with primary care provider next 24-48 hours. Strict return precautions were discussed. Patient verbally agreed to plan. Patient sent home in stable condition. Case discussed my attending, Dr. Casey. - Lab Data Lab Results 11/20/21 Range/Units 15:15 Coronavirus (PCR) Detected A (Not Detectd) Disposition Clinical Impression: COVID-19 Disposition: HOME SELF-CARE Condition: Stable Instructions (If sedation given, give patient instructions): Coronavirus Disease 2019 (COVID-19) Additional Instructions: Please return to the emergency department with any concerning, new, or worsening symptoms. Take [id number] zinc, vitamin C, vitamin D. Take Tylenol or Motrin as directed for symptomatic relief. Follow up with primary care provider next 24-48 hours. Advised to get pulse oximeter from [facility] and to return to the emergency department if oxygen drops below 90%. Is patient prescribed a controlled substance at d/c from ED?: No Referrals: Ross Mon MD [Primary Care Provider] - 1-2 days Time of Disposition: 15:44
== END 2021-11-20 15:47 | disposition home or self-care (01) ==
LOC: EC 14:34
DX: U07.1 COVID-19 (principal); I48.91 Unspecified atrial fibrillation; F17.200 Nicotine dependence, unspecified, uncomplicated; Z72.89 Other problems related to lifestyle
CPT/HCPCS: 87635; 99283

== ENCOUNTER 2023-02-17 14:41 | Inpatient (IN) | payer BC ==
[2023-02-17] MEDS ORDERED: SODIUM CHLORIDE 0.9% 1,000 ML IV STA ×2 (16:07)
--- NOTE | 2023-02-17 16:15 | ED ---
Weakness HPI - General Chief complaint: Shortness of Breath Stated complaint: chills SOB Afib Time Seen by Provider: 02/17/23 15:12 Source: patient, RN notes reviewed, old records reviewed Mode of arrival: ambulatory Limitations: no limitations - History of Present Illness Initial comments: This is a 52-year-old male to the emergency for evaluation patient presents today for evaluation of cough weakness fatigue for days. 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 Patient was sent home was was closing kind of attempt to find out where the outbreak was returning from. Patient presents today for weakness and not feeling well. Occasional chest pain shortness of breath MD Complaint: generalized weakness, focal weakness -: week(s) Location: generalized Severity: moderate Severity scale (1-10): 7 Consistency: constant Improves with: none Worsens with: none Context: recent illness Associated Symptoms: denies other symptoms - Related Data Home Medications Medication Instructions Recorded Confirmed No Known Home Medications 02/17/23 02/17/23 Allergies Allergy/AdvReac Type Severity Reaction Status Date / Time bee venom protein (honey bee) Allergy Swelling Verified 02/17/23 16:02 at sting site Review of Systems ROS Statement: Those systems with pertinent positive or pertinent negative responses have been documented in the HPI. ROS Other: All systems not noted in ROS Statement are negative. Past Medical History Past Medical History: Atrial Fibrillation History of Any Multi-Drug Resistant Organisms: None Reported Past Surgical History: Orthopedic Surgery Additional Past Surgical History / Comment(s): Bilateral knee arthroscopies. Past Anesthesia/Blood Transfusion Reactions: No Reported Reaction Past Psychological History: No Psychological Hx Reported Smoking Status: Current every day smoker Past Alcohol Use History: Occasional Past Drug Use History: None Reported - Past Family History Father Family Medical History: No Reported History Additional Family Medical History / Comment(s): Father is healthy and in his late 70's. Mother Family Medical History: Diabetes Mellitus Additional Family Medical History / Comment(s): Mother is in her late 70's. Maternal grandparents also had diabetes. General Exam Limitations: no limitations General appearance: alert, in no apparent distress Head exam: Present: atraumatic, normocephalic, normal inspection Eye exam: Present: normal appearance, PERRL, EOMI. Absent: scleral icterus, conjunctival injection, periorbital swelling ENT exam: Present: normal exam, mucous membranes moist Neck exam: Present: normal inspection. Absent: tenderness, meningismus, lymphadenopathy Respiratory exam: Present: normal lung sounds bilaterally. Absent: respiratory distress, wheezes, rales, rhonchi, stridor Cardiovascular Exam: Present: regular rate, normal rhythm, normal heart sounds. Absent: systolic murmur, diastolic murmur, rubs, gallop, clicks GI/Abdominal exam: Present: soft, normal bowel sounds. Absent: distended, tenderness, guarding, rebound, rigid Extremities exam: Present: normal inspection, full ROM, normal capillary refill. Absent: tenderness, pedal edema, joint swelling, calf tenderness Back exam: Present: normal inspection Neurological exam: Present: alert, oriented X3, CN II-XII intact Psychiatric exam: Present: normal affect, normal mood Skin exam: Present: warm, dry, intact, normal color. Absent: rash Course Vital Signs 02/17/23 02/17/23 14:44 19:07 Temperature 97.9 F Pulse Rate 87 81 Respiratory 20 18 Rate Blood Pressure 139/90 131/89 O2 Sat by Pulse 99 98 Oximetry - Reevaluation(s) Reevaluation #1: 02/18/23 00:03 Medical record is reviewed Reevaluation #2: 02/18/23 00:03 Patient has no improvement in symptoms here in the ER Reevaluation #3: 02/18/23 00:03 Patient informed results and questions answered Reevaluation #4: 02/18/23 00:03 Was pt. sent in by a medical professional or institution? @ -no Did you speak to anyone other than the patient for history? @ -no Did you review nursing and triage notes? @ -agree Were old charts reviewed? @ -no Differential Diagnosis? @ -prior EKG interpreted by me (3pts min.)? @ -no X-rays interpreted by me (1pt min.)? @ -yes CT interpreted by me (1pt min.)? @ -no U/S interpreted by me (1pt. min.)? @ -no What testing was considered but not performed? (CT, X-rays, U/S, labs)? Why? @ -no What meds were considered but not given? Why? @ -no Did you discuss the management of the patient with other professionals? @ -no Did you reconcile home meds? @ -no Was smoking cessation discussed for >3mins.? @ -no Was critical care preformed (if so, how long)? @ -no Were there social determinants of health that impacted care today? How? (Homelessness, low income, unemployed, alcoholism, drug addiction, transportation, low edu. Level, literacy, decrease access to med. care, [facility], rehab)? @ -no Was there de-escalation of care discussed even if they declined? (Discuss DNR or withdrawal of care, Hospice)? @ -no What co-morbidities impacted this encounter? (DM, HTN, Smoking, COPD, CAD, Cancer, CVA, Hep., AIDS, mental health diagnosis, sleep apnea, morbid obesity)? @ -no Was patient admitted / discharged? @ -admit Undiagnosed new problem with uncertain prognosis? @ -no Drug Therapy requiring intensive monitoring for toxicity (Heparin, Nitro, Insulin, Cardizem)? @ -antifungals Were any procedures done? @ -no Diagnosis/symptom? @ -blastomycosis Acute, or Chronic, or Acute on Chronic? @ -no Uncomplicated (without systemic symptoms) or Complicated (systemic symptoms)? @ -no Side effects of treatment? @ -no Exacerbation, Progression, or Severe Exacerbation] @ -no Poses a threat to life or bodily function? @ -no EKG Findings - EKG Comments: EKG Findings:: EKG is sinus 76 NE 143 QRS 95 QTc. 399 - EKG Results: EKG: interpreted by [facility] Medical Decision Making - Medical Decision Making 49 female DF for evaluation patient has exposure to blastomycosis which is insulin at work and repeat. Patient does have significant symptoms of feeling rundown fatigued lightheaded fevers cough shortness of breath chest pain. Patient does appear to have symptoms of secondary pneumonia on x-ray will be admitted for treatment infectious disease evaluation and supportive care - Lab Data Result diagrams: 02/17/23 16:50 02/17/23 16:50 Lab Results 02/17/23 02/17/23 02/17/23 Range/Units 16:50 16:50 16:50 WBC 9.7 (3.8-10.6) k/uL RBC 4.84 (4.30-5.90) m/uL Hgb 14.7 (13.0-17.5) gm/dL Hct 43.8 (39.0-53.0) % MCV 90.5 (80.0-100.0) fL MCH 30.4 (25.0-35.0) pg MCHC 33.6 (31.0-37.0) g/dL RDW 12.5 (11.5-15.5) % Plt Count 393 (150-450) k/uL MPV 7.2 Neutrophils % 69 % Lymphocytes % 21 % Monocytes % 6 % Eosinophils % 2 % Basophils % 1 % Neutrophils # 6.7 (1.3-7.7) k/uL Lymphocytes # 2.1 (1.0-4.8) k/uL Monocytes # 0.6 (0-1.0) k/uL Eosinophils # 0.2 (0-0.7) k/uL Basophils # 0.1 (0-0.2) k/uL ESR 67 H (0-15) mm/hr PT 10.2 (9.0-12.0) sec INR 1.0 (<1.2) APTT 25.7 (22.0-30.0) sec D-Dimer 1.19 H (<0.60) mg/L FEU Sodium 138 (137-145) mmol/L Potassium 4.0 (3.5-5.1) mmol/L Chloride 98 (98-107) mmol/L Carbon Dioxide 30 (22-30) mmol/L Anion Gap 10 mmol/L BUN 10 (9-20) mg/dL Creatinine 0.97 (0.66-1.25) mg/dL Est GFR (CKD-EPI)AfAm >90 (>60 ml/min/1.73 sqM) Est GFR (CKD-EPI)NonAf 90 (>60 ml/min/1.73 sqM) Glucose 113 H (74-99) mg/dL Plasma Lactic Acid Alejandro (0.7-2.0) mmol/L Calcium 8.5 (8.4-10.2) mg/dL Phosphorus 3.6 (2.5-4.5) mg/dL Magnesium 2.4 H (1.6-2.3) mg/dL Total Bilirubin 0.4 (0.2-1.3) mg/dL AST 27 (17-59) U/L ALT 25 (4-49) U/L Alkaline Phosphatase 91 (38-126) U/L Troponin I (0.000-0.034) ng/mL C-Reactive Protein 17.4 H (<1.0) mg/dL NT-Pro-B Natriuret Pep pg/mL Total Protein 7.7 (6.3-8.2) g/dL Albumin 3.8 (3.5-5.0) g/dL Influenza Type A (PCR) (Not Detectd) Influenza Type B (PCR) (Not Detectd) RSV (PCR) (Not Detectd) SARS-CoV-2 (PCR) (Not Detectd) 02/17/23 02/17/23 02/17/23 Range/Units 16:50 16:50 16:50 WBC (3.8-10.6) k/uL RBC (4.30-5.90) m/uL Hgb (13.0-17.5) gm/dL Hct (39.0-53.0) % MCV (80.0-100.0) fL MCH (25.0-35.0) pg MCHC (31.0-37.0) g/dL RDW (11.5-15.5) % Plt Count (150-450) k/uL MPV Neutrophils % % Lymphocytes % % Monocytes % % Eosinophils % % Basophils % % Neutrophils # (1.3-7.7) k/uL Lymphocytes # (1.0-4.8) k/uL Monocytes # (0-1.0) k/uL Eosinophils # (0-0.7) k/uL Basophils # (0-0.2) k/uL ESR (0-15) mm/hr PT (9.0-12.0) sec INR (<1.2) APTT (22.0-30.0) sec D-Dimer (<0.60) mg/L FEU Sodium (137-145) mmol/L Potassium (3.5-5.1) mmol/L Chloride (98-107) mmol/L Carbon Dioxide (22-30) mmol/L Anion Gap mmol/L BUN (9-20) mg/dL Creatinine (0.66-1.25) mg/dL Est GFR (CKD-EPI)AfAm (>60 ml/min/1.73 sqM) Est GFR (CKD-EPI)NonAf (>60 ml/min/1.73 sqM) Glucose (74-99) mg/dL Plasma Lactic Acid Alejandro 1.4 (0.7-2.0) mmol/L Calcium (8.4-10.2) mg/dL Phosphorus (2.5-4.5) mg/dL Magnesium (1.6-2.3) mg/dL Total Bilirubin (0.2-1.3) mg/dL AST (17-59) U/L ALT (4-49) U/L Alkaline Phosphatase (38-126) U/L Troponin I <0.012 (0.000-0.034) ng/mL C-Reactive Protein (<1.0) mg/dL NT-Pro-B Natriuret Pep 161 pg/mL Total Protein (6.3-8.2) g/dL Albumin (3.5-5.0) g/dL Influenza Type A (PCR) (Not Detectd) Influenza Type B (PCR) (Not Detectd) RSV (PCR) (Not Detectd) SARS-CoV-2 (PCR) (Not Detectd) 02/17/23 Range/Units 16:50 WBC (3.8-10.6) k/uL RBC (4.30-5.90) m/uL Hgb (13.0-17.5) gm/dL Hct (39.0-53.0) % MCV (80.0-100.0) fL MCH (25.0-35.0) pg MCHC (31.0-37.0) g/dL RDW (11.5-15.5) % Plt Count (150-450) k/uL MPV Neutrophils % % Lymphocytes % % Monocytes % % Eosinophils % % Basophils % % Neutrophils # (1.3-7.7) k/uL Lymphocytes # (1.0-4.8) k/uL Monocytes # (0-1.0) k/uL Eosinophils # (0-0.7) k/uL Basophils # (0-0.2) k/uL ESR (0-15) mm/hr PT (9.0-12.0) sec INR (<1.2) APTT (22.0-30.0) sec D-Dimer (<0.60) mg/L FEU Sodium (137-145) mmol/L Potassium (3.5-5.1) mmol/L Chloride (98-107) mmol/L Carbon Dioxide (22-30) mmol/L Anion Gap mmol/L BUN (9-20) mg/dL Creatinine (0.66-1.25) mg/dL Est GFR (CKD-EPI)AfAm (>60 ml/min/1.73 sqM) Est GFR (CKD-EPI)NonAf (>60 ml/min/1.73 sqM) Glucose (74-99) mg/dL Plasma Lactic Acid Alejandro (0.7-2.0) mmol/L Calcium (8.4-10.2) mg/dL Phosphorus (2.5-4.5) mg/dL Magnesium (1.6-2.3) mg/dL Total Bilirubin (0.2-1.3) mg/dL AST (17-59) U/L ALT (4-49) U/L Alkaline Phosphatase (38-126) U/L Troponin I (0.000-0.034) ng/mL C-Reactive Protein (<1.0) mg/dL NT-Pro-B Natriuret Pep pg/mL Total Protein (6.3-8.2) g/dL Albumin (3.5-5.0) g/dL Influenza Type A (PCR) Not Detected (Not Detectd) Influenza Type B (PCR) Not Detected (Not Detectd) RSV (PCR) Not Detected (Not Detectd) SARS-CoV-2 (PCR) Not Detected (Not Detectd) - Radiology Data Radiology results: report reviewed (Chest x-ray and CT chest show significant infiltrate pneumonia or mass), image reviewed Critical Care Time Critical Care Time: Yes Total Critical Care Time: 31 Disposition Clinical Impression: Lung mass, Pulmonary blastomycosis Disposition: ADMITTED IP TO THIS [facility] Condition: Serious Time of Disposition: 21:00
--- NOTE | 2023-02-17 17:06 | XR ---
EXAMINATION TYPE: XR chest 1V portable DATE OF EXAM: 02/17/2023 COMPARISON: Chest x-ray April 12, 2021 HISTORY: Chest pain. TECHNIQUE: Single frontal view of the chest is obtained. FINDINGS: There is left hilar masslike opacity. Mild central vascular congestion. The cardiac silhou ette size is stable and upper limits of normal. The osseous structures are intact. IMPRESSION: . Central vascular congestion with possible more focal left hilar consolidation and/or e brianna. CT study has been ordered to further evaluate.
[2023-02-17 17:09] LABS: Basophils # (A) 0.1 k/uL (0-0.2); Basophils % (A) 1 %; Eosinophils # (A) 0.2 k/uL (0-0.7); Eosinophils % (A) 2 %; HCT 43.8 % (39.0-53.0); HGB 14.7 gm/dL (13.0-17.5); Lymphocytes # (A) 2.1 k/uL (1.0-4.8); Lymphocytes % (A) 21 %; MCH 30.4 pg (25.0-35.0); MCHC 33.6 g/dL (31.0-37.0); MCV 90.5 fL (80.0-100.0); Mean Platelet Volume 7.2; Monocytes # (A) 0.6 k/uL (0-1.0); Monocytes % (A) 6 %; Neutrophils # (A) 6.7 k/uL (1.3-7.7); Neutrophils % (A) 69 %; Platelet Count 393 k/uL (150-450); RBC 4.84 m/uL (4.30-5.90); RDW 12.5 % (11.5-15.5); WBC 9.7 k/uL (3.8-10.6)
[2023-02-17 17:26] LABS: Partial Thromboplastin Time 25.7 sec (22.0-30.0); Prothrombin Time 10.2 sec (9.0-12.0)
[2023-02-17 17:28] LABS: ALT 25 U/L (4-49); AST 27 U/L (17-59); African American GFR (CKD) >90 (>60 ml/min/1.73 sqM); Albumin 3.8 g/dL (3.5-5.0); Alkaline Phosphatase 91 U/L (38-126); Anion Gap 10 mmol/L; Blood Urea Nitrogen 10 mg/dL (9-20); Calcium 8.5 mg/dL (8.4-10.2); Carbon Dioxide 30 mmol/L (22-30); Chloride 98 mmol/L (98-107); Glucose 113 mg/dL (74-99); Magnesium 2.4 mg/dL (1.6-2.3); Non-African American GFR(CKD) 90 (>60 ml/min/1.73 sqM); Phosphorus 3.6 mg/dL (2.5-4.5); Sodium 138 mmol/L (137-145); Total Bilirubin 0.4 mg/dL (0.2-1.3); Total Protein 7.7 g/dL (6.3-8.2)
[2023-02-17 17:53] LABS: Erythrocyte Sedimentation Rate 67 mm/hr (0-15)
[2023-02-17 19:06] LABS: C Reactive Protein 17.4 mg/dL (<1.0)
[2023-02-17 19:10] VITALS: RESP 18
--- NOTE | 2023-02-17 19:27 | CT ---
EXAMINATION TYPE: CT angio chest DATE OF EXAM: 02/17/2023 COMPARISON: NONE HISTORY: elevated d dimer CT DLP: 523.4 mGycm. Automated Exposure Control for Dose Reduction was Utilized. CONTRAST: CTA scan of the thorax is performed with IV Contrast, patient injected with 100 cc mL of Isovue 370, pulmonary embolism protocol. MIP Images are created on CT scanner and reviewed. FINDINGS: LUNGS: There is posterior superior left lower lobe mass and/or masslike consolidation extending from the left hilar region with some adjacent areas of groundglass opacity. Some areas have crossing vesse ls but some areas do not. This measures approximate 6.4 x 5.9 cm axial image 72. Right lung is clear . There is no pleural effusion or pneumothorax seen. The tracheobronchial tree is patent. MEDIASTINUM: There is satisfactory enhancement of the pulmonary artery and its branches, there is no CT evidence for pulmonary embolism. There is an enlarged 3.0 x 1.7 cm subcarinal lymph node axial hazel ge 69. There is enlarged 2.2 x 1.6 cm left hilar lymph node axial image 73. No cardiomegaly or miky cardial effusion is seen. OTHER: No additional significant abnormality is seen. IMPRESSION: 1. No CT evidence for acute pulmonary embolism. 2. There is superior left lower lobe mass and/or masslike consolidation with some surrounding groundg lass opacity along with abnormal left hilar and subcarinal adenopathy. I do suspect there is most lik jose juan underlying neoplasm but additional acute infectious process not entirely excluded. Follow-up is s govindngly advised.
[2023-02-17] MEDS ORDERED: NALOXONE 0.4 MG/ML 1 ML VIAL IV PRN (21:02)
[2023-02-17] MEDS ORDERED: MORPHINE SULFATE 4 MG/ML SYRINGE IV PRN (21:02)
[2023-02-18] MEDS ORDERED: ITRACONAZOLE 100 MG CAP PO STA (00:07)
[2023-02-18 07:04] LABS: Basophils % (A) 0 %; Eosinophils # (A) 0.1 k/uL (0-0.7); Eosinophils % (A) 1 %; HGB 13.5 gm/dL (13.0-17.5); Lymphocytes # (A) 1.6 k/uL (1.0-4.8); Lymphocytes % (A) 14 %; MCH 30.7 pg (25.0-35.0); MCHC 33.6 g/dL (31.0-37.0); MCV 91.1 fL (80.0-100.0); Mean Platelet Volume 7.1; Monocytes # (A) 0.7 k/uL (0-1.0); Monocytes % (A) 7 %; Neutrophils # (A) 8.5 k/uL (1.3-7.7); Neutrophils % (A) 76 %; Platelet Count 385 k/uL (150-450); RBC 4.39 m/uL (4.30-5.90); RDW 12.6 % (11.5-15.5); WBC 11.2 k/uL (3.8-10.6)
[2023-02-18 07:05] LABS: ALT 20 U/L (4-49); AST 22 U/L (17-59); African American GFR (CKD) >90 (>60 ml/min/1.73 sqM); Alkaline Phosphatase 68 U/L (38-126); Anion Gap 7 mmol/L; Blood Urea Nitrogen 7 mg/dL (9-20); Calcium 7.7 mg/dL (8.4-10.2); Carbon Dioxide 27 mmol/L (22-30); Chloride 102 mmol/L (98-107); Glucose 132 mg/dL (74-99); Non-African American GFR(CKD) >90 (>60 ml/min/1.73 sqM); Sodium 136 mmol/L (137-145); Total Bilirubin 0.3 mg/dL (0.2-1.3); Total Protein 6.1 g/dL (6.3-8.2)
--- NOTE | 2023-02-18 08:25 | P.HPIM ---
History of Present Illness H&P Date: 02/18/23 Chief Complaint: Cough and shortness of breath. This 52-year-old white male with history of remote atrial fibrillation who is a long-time smoker 20 pack year. He moved to the [place] [facility] last year for work. He states last several weeks that his platelet has not been close to significant blastomycosis exposure. 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 The patient is here now for appropriate treatment. Appreciate multiple consultants input. No significant fever or chills but dyspnea on exertion is noted. Review of Systems Constitutional: Denies chills, Denies fever Eyes: denies blurred vision, denies pain Ears, nose, mouth and throat: Denies headache, Denies sore throat Cardiovascular: Denies chest pain, Denies shortness of breath Respiratory: Reports as per HPI, Reports cough, Reports respiratory infections Integumentary: Denies pruritus, Denies rash Neurological: Denies numbness, Denies weakness Psychiatric: Denies anxiety, Denies depression Endocrine: Denies fatigue, Denies weight change Past Medical History Past Medical History: Atrial Fibrillation History of Any Multi-Drug Resistant Organisms: None Reported Past Surgical History: Orthopedic Surgery Additional Past Surgical History / Comment(s): Bilateral knee arthroscopies. Past Anesthesia/Blood Transfusion Reactions: No Reported Reaction Past Psychological History: No Psychological Hx Reported Smoking Status: Current every day smoker Past Alcohol Use History: Occasional Past Drug Use History: None Reported - Past Family History Father Family Medical History: No Reported History Additional Family Medical History / Comment(s): Father is healthy and in his late 70's. Mother Family Medical History: Diabetes Mellitus Additional Family Medical History / Comment(s): Mother is in her late 70's. Maternal grandparents also had diabetes. Medications and Allergies Home Medications Medication Instructions Recorded Confirmed Type No Known Home Medications 02/17/23 02/17/23 History Allergies Allergy/AdvReac Type Severity Reaction Status Date / Time bee venom protein (honey bee) Allergy Swelling Verified 02/17/23 16:02 at sting site Physical Exam Vitals: Vital Signs Temp Pulse Pulse Resp BP BP Pulse Ox 02/18/23 07:12 99.1 F 73 18 155/78 96 02/18/23 00:53 99.0 F 78 18 119/75 97 02/17/23 23:00 18 04/20/23 22:28 99.4 F 71 18 122/74 97 02/17/23 19:07 81 18 131/89 98 02/17/23 14:44 97.9 F 87 20 139/90 99 Intake and Output 02/17/23 02/18/23 02/18/23 22:59 06:59 14:59 Intake Total 600 Balance 600 Intake: Oral 600 Other: Voiding Method Toilet Toilet # Voids 2 Weight 99.79 kg - Constitutional General appearance: average body habitus, cooperative, no disheveled - Neck Neck: no lymphadenopathy - Respiratory Respiratory: bilateral: rhonchi - Cardiovascular Rhythm: regular Heart sounds: normal: S1, S2 Abnormal Heart Sounds: no S3 Gallop - Gastrointestinal General gastrointestinal: soft, no tenderness - Integumentary Integumentary: no cellulitis - Psychiatric Psychiatric: A&O x's 3, appropriate affect Results CBC & Chem 7: 02/18/23 06:26 02/18/23 06:26 Labs: Abnormal Lab Results - Last 24 Hours (Table) 02/17/23 02/17/23 02/17/23 Range/Units 16:50 16:50 16:50 WBC (3.8-10.6) k/uL Neutrophils # (1.3-7.7) k/uL ESR 67 H (0-15) mm/hr D-Dimer 1.19 H (<0.60) mg/L FEU Sodium (137-145) mmol/L BUN (9-20) mg/dL Glucose 113 H (74-99) mg/dL Calcium (8.4-10.2) mg/dL Magnesium 2.4 H (1.6-2.3) mg/dL C-Reactive Protein 17.4 H (<1.0) mg/dL Total Protein (6.3-8.2) g/dL Albumin (3.5-5.0) g/dL 02/18/23 02/18/23 Range/Units 06:26 06:26 WBC 11.2 H (3.8-10.6) k/uL Neutrophils # 8.5 H (1.3-7.7) k/uL ESR (0-15) mm/hr D-Dimer (<0.60) mg/L FEU Sodium 136 L (137-145) mmol/L BUN 7 L (9-20) mg/dL Glucose 132 H (74-99) mg/dL Calcium 7.7 L (8.4-10.2) mg/dL Magnesium (1.6-2.3) mg/dL C-Reactive Protein (<1.0) mg/dL Total Protein 6.1 L (6.3-8.2) g/dL Albumin 3.0 L (3.5-5.0) g/dL Thrombosis Risk Factor Assmnt - Choose All That Apply Any of the Below Risk Factors Present?: Yes Each Factor Represents 1 point: Age 41-60 years, Obesity (BMI >25) Other Risk Factors: No Other congenital or acquired thrombophilia - If yes, enter type in comment: No Thrombosis Risk Factor Assessment Total Risk Factor Score: 2 Thrombosis Risk Factor Assessment Level: Low Risk Assessment and Plan (1) Lung mass Current Visit: Yes Status: Acute Code(s): R91.8 - OTHER NONSPECIFIC ABNORMAL FINDING OF LUNG FIELD SNOMED Code(s): 820854749 (2) Pulmonary blastomycosis Current Visit: Yes Status: Acute Code(s): B40.2 - PULMONARY BLASTOMYCOSIS, UNSPECIFIED SNOMED Code(s): 803199191 (3) Tobacco abuse Current Visit: No Status: Acute Code(s): Z72.0 - TOBACCO USE SNOMED Code(s): 882181051 Plan: Continue current regimen of antifungal treatment. Reconcile medications necessary. Nebulizer treatments. Check CBC and CMP in a.m. The patient is otherwise full code. See orders otherwise.
[2023-02-18] MEDS ORDERED: ITRACONAZOLE 100 MG CAP PO SCH ×2 (09:00→21:00)
[2023-02-18] MEDS: ALBUTEROL NEBULIZED 2.5 MG/3 ML INHALATION SCH ×2 (11:42→15:05)
[2023-02-18 12:28] VITALS: BP 101/66; TEMP 98.1
[2023-02-18 15:08] VITALS: PULSE 80
--- NOTE | 2023-02-18 15:35 | P.CNPUL ---
History of Present Illness Consult date: 02/18/23 Reason for consult: pneumonia History of present illness: This is a 52-year-old male to the emergency for evaluation patient presents today for evaluation of cough weakness fatigue for days. Noted the patient has been getting sick over the past 3 weeks. Symptoms started with chills, fatigue, night sweats, cough and congestion without any hemoptysis. His left lower posterior chest area has been also hurting and according to the patient been having some pleuritic chest pain. Noted the patient has been up [place] where he works for a [employer] company and several individuals in the work setting have been confirmed to have been infected with blastomycosis. I believe his colleagues have undergone further testing including bronchoscopies. As such, the patient is very much concerned that he may have been inhaled same spores and subsequently got infected. The patient does not have any previous history of pneumonia. He is a chronic smoker. CAT scan of the chest was done in the emergency department and the patient was found to have a dense infiltration in the superior segment of the left lower lobe with extensive consolidation and evidence of a left hilar and subcarinal lymphadenopathy. Right lung was essentially clear. The patient was started on Sporanox. Pulmonary consultation was requested. Infectious disease consultation was also obtained. Blood work shows a WBC count of 11.2 with a hemoglobin 15.5 and a platelet count of 385. Electrolytes are all within normal limits. D-dimer is at 1.1. Normal coagulation profile. Influenza screen, Covid 19 screen and RSV were all negative. The patient is hemodynamically stable. He is on room air oxygen. Review of Systems Constitutional: Reports fatigue, Reports night sweats, Reports poor appetite, Reports weakness, Reports weight loss Eyes: denies as per HPI, denies blurred vision, denies bulging eye, denies decreased vision, denies diplopia, denies discharge, denies dry eye, denies irritation, denies itching, denies pain, denies photophobia, denies loss of peripheral vision, denies loss of vision, denies tunnel vision/blind spots Ears: deny: decreased hearing, ear discharge, earache, tinnitus Ears, nose, mouth and throat: Reports as per HPI Breasts: absent: as per HPI, gynecomastia Cardiovascular: Reports dyspnea on exertion Respiratory: Reports congestion, Reports cough Gastrointestinal: Reports as per HPI Genitourinary: Reports as per HPI Musculoskeletal: Reports as per HPI Musculoskeletal: absent: ankle pain, ankle stiffness, ankle swelling Integumentary: Reports as per HPI Neurological: Reports as per HPI Psychiatric: Reports as per HPI Endocrine: Reports as per HPI Hematologic/Lymphatic: Reports as per HPI Allergic/Immunologic: Reports as per HPI Past Medical History Past Medical History: Atrial Fibrillation History of Any Multi-Drug Resistant Organisms: None Reported Past Surgical History: Orthopedic Surgery Additional Past Surgical History / Comment(s): Bilateral knee arthroscopies. Past Anesthesia/Blood Transfusion Reactions: No Reported Reaction Past Psychological History: No Psychological Hx Reported Smoking Status: Current every day smoker Past Alcohol Use History: Occasional Past Drug Use History: None Reported - Past Family History Father Family Medical History: No Reported History Additional Family Medical History / Comment(s): Father is healthy and in his l ate 70's. Mother Family Medical History: Diabetes Mellitus Additional Family Medical History / Comment(s): Mother is in her late 70's. Maternal grandparents also had diabetes. Medications and Allergies Home Medications Medication Instructions Recorded Confirmed Type No Known Home Medications 02/17/23 02/17/23 History Allergies Allergy/AdvReac Type Severity Reaction Status Date / Time bee venom protein (honey bee) Allergy Swelling Verified 02/17/23 16:02 at sting site Physical Exam Vitals: Vital Signs Temp Pulse Pulse Resp BP BP Pulse Ox 02/18/23 15:19 80 02/18/23 15:06 80 02/18/23 12:18 98.1 F 76 18 101/66 98 02/18/23 11:54 76 02/18/23 11:42 80 02/18/23 07:12 99.1 F 73 18 155/78 96 02/18/23 00:53 99.0 F 78 18 119/75 97 02/17/23 23:00 18 02/17/23 22:28 99.4 F 71 18 122/74 97 02/17/23 19:07 81 18 131/89 98 Intake and Output 02/18/23 02/18/23 02/18/23 06:59 14:59 22:59 Intake Total 600 Balance 600 Intake: Oral 600 Other: Voiding Method Toilet Toilet # Voids 2 Gen. appearance the patient is calm and comfortable. He does not look toxic at all. The patient is currently on room air oxygen The patient appeared well nourished and normally developed. Vital signs as documented. Head exam is unremarkable. No scleral icterus or corneal arcus noted. Neck is without jugular venous distension, thyromegaly, or carotid bruits. Carotid upstrokes are brisk bilaterally. Lungs are clear on the right. Diminished breath on the left along with some crackling. He crackling is mainly in the left lung base. Cardiac exam reveals the PMI to be normally sized and situated. Rhythm is regular. First and second heart sounds normal. No murmurs, rubs or gallops. Abdominal exam reveals normal bowel sounds, no masses, no orga nomegaly and no aortic enlargement. Extremities are nonedematous and both femoral and pedal pulses are normal. Examination of the skin revealed no evidence of significant rashes, suspicious appearing nevi or other concerning lesions. Neurologically, the patient is awake and alert and the patient does not have any focal neurological deficit. Cranial nerves are essentially intact. Results - Laboratory Findings CBC and BMP: 02/18/23 06:26 02/18/23 06:26 PT/INR, D-dimer PT 10.2 sec (9.0-12.0) 02/17/23 16:50 INR 1.0 (<1.2) 02/17/23 16:50 D-Dimer 1.19 mg/L FEU (<0.60) H 02/17/23 16:50 Abnormal lab findings: Abnormal Labs 02/17/23 02/17/23 02/17/23 16:50 16:50 16:50 WBC Neutrophils # ESR 67 H D-Dimer 1.19 H Sodium BUN Glucose 113 H Calcium Magnesium 2.4 H C-Reactive Protein 17.4 H Total Protein Albumin 02/18/23 02/18/23 06:26 06:26 WBC 11.2 H Neutrophils # 8.5 H ESR D-Dimer Sodium 136 L BUN 7 L Glucose 132 H Calcium 7.7 L Magnesium C-Reactive Protein Total Protein 6.1 L Albumin 3.0 L - Diagnostic Findings Chest x-ray: image reviewed CT scan - chest: image reviewed Assessment and Plan Plan: Subacute pneumonia involving the superior segment of the left lower lobe along with presence of left hilar and subcarinal lymphadenopathy. Findings could be related to blastomycosis specially with outbreak at his work environment. Patient could've inhaled the fungal spores and currently presenting with a mediastinal lymphadenopathy in addition to a severe segment left lower lobe pneumonia. He does not look toxic suggest bacterial pneumonia. No leukocytosis. Night sweats among other constitutional symptoms as mentioned above History of a defibrillation Plan Check pro calcitonin level Check blastomycosis antibodies Start the patient on Sporanox 200 mg twice a day Patient can be discharged home with a short-term follow-up. If clinically unchanged and antibodies are negative, may need a bronchoscopy and bronchoalveolar lavage of the left lower lobe to confirm the findings. Patient is currently on room air oxygen Continue to follow
== END 2023-02-18 17:35 | disposition home or self-care (01) | DRG 869 ==
LOC: EC 14:41 → 5NMEDONC 21:03
PROVIDERS: ADMIT Family Medicine; ATTEND Family Medicine
DX: B40.2 Pulmonary blastomycosis, unspecified (principal); I48.91 Unspecified atrial fibrillation; F17.210 Nicotine dependence, cigarettes, uncomplicated; Z20.822 Contact with and (suspected) exposure to COVID-19; Z91.030 Bee allergy status
CPT/HCPCS: 36415; 71045; 71275; 80053; 83605; 83735; 83880; 84100; 84484; 85025; 85379; 85610; 85652; 85730; 86140; 87070; 87205; 87636; 93005; 94640; 96360; 96361; 99291